=== PATIENT | female | born 1995 | race Caucasian/White ===

== ENCOUNTER 2021-04-20 23:35 | Emergency (ER) | payer MEDICAID, SELFPAY ==
[2021-04-20 23:40] VITALS: BP 115/62; PULSE 69; RESP 18; TEMP 36.3; O2SAT 100
[2021-04-21 00:49] LABS: Add Urine Microscopic? YES; Appearance Urine Clear (Clear); Bilirubin Urine Negative (Negative); Blood Urine 1+ (Negative); Color Urine Yellow (Yellow); Glucose Urine UA Negative (Negative); Ketones Urine Negative (Negative); Leukocyte Esterase Ur Negative LEU/UL (Negative); Nitrate Urine Negative (Negative); Protein Urine Negative (Negative); RBC Urine 0-2 /hpf (0-2); Squamous Epithelial Cell Urine Rare /hpf (Few); Urobilinogen Urine Negative mg/dL (<2.0); WBC Urine 0-3 /hpf
[2021-04-21 02:00] VITALS: BP 126/56; PULSE 67; RESP 18; TEMP 36.8; O2SAT 100
--- NOTE | 2021-04-21 03:45 | ED.BACK ---
HPI - Back Pain/Injury General Chief Complaint: Back Pain/Injury Stated Complaint: severe back pain Time Seen by Provider: 04/21/21 02:33 Source: patient and RN notes reviewed Mode of arrival: ambulatory Limitations: no limitations History of Present Illness HPI Narrative: This is a 26 year old female with scolosis and chronic back pain who presents for evaluation low back pain. She states she has chronic low back pain but she has been having worsening pain 3 days ago. Her pain has been constant. She states her pain does not seem worse with anything or better with anything. She denies nausea, vomiting, fever, leg weakness, numbness, tingling or abdominal pain. She took ibuprofen 6 hours ago for her pain. 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 She denies any recent heavy moving although she just moved to town 3 weeks ago. Related Data Allergies Allergy/AdvReac Type Severity Reaction Status Date / Time No Known Allergies Allergy Verified 04/21/21 02:10 Review of Systems Review of Systems: All systems reviewed & are unremarkable except as noted in HPI and below PMFSH Past Medical History Medical History (Updated 04/21/21 @ 05:22 by Lizette Ontiveros MD) Scoliosis Surgical History Surgical History (Updated 04/21/21 @ 03:48 by Lizette Ontiveros MD) No pertinent past surgical history Social History Social History (Updated 04/21/21 @ 03:48 by Lizette Ontiveros MD) Smoking status: Never smoker Exam Const: General: no acute distress and alert Orientation/consciousness: patient oriented x3 Eyes: EOM: EOMs intact bilaterally Chest: Chest palpation & inspection: normal inspection of the chest Resp: Effort & Inspection: normal respiratory effort and no retractions Auscultation: clear to auscultation bilaterally Cardio: Rate: regular rate Rhythm: regular rhythm GI: GI Palp: Yes Soft to palpation, No Tenderness to palpation present (GI) and No Guarding due to palpation present (GI) Auscultation: normal bowel sounds Back/Spine/Pelvis: Back: no CVA tenderness Other: patient had muscular tenderness to bilateral lower back. She started crying. Skin: General skin exam: normal color Rashes: no rashes Neuro: General: patient oriented x3, moves all extremities and CN's II-XI intact bilaterally Gait exam (Neuro): Normal gait present Course Reevaluation(s) Reevaluation #1: PAtient states she feels much better. Labs were unremarkable. She has no signs imaging needed at this time. Date: 04/21/21 Time: 05:21 Vital Signs Vital signs: Vital Signs Temperature 97.3 F L 04/20/21 23:40 Pulse Rate 69 04/20/21 23:40 Respiratory Rate 18 04/20/21 23:40 Blood Pressure 115/62 04/20/21 23:40 Pulse Oximetry 100 04/20/21 23:40 Temperature 98.2 F 04/21/21 02:00 Pulse Rate 60 04/21/21 05:57 Respiratory Rate 16 04/21/21 05:57 Blood Pressure 112/61 04/21/21 05:57 Pulse Oximetry 100 04/21/21 05:57 MDM - Back Pain/Injury Lab Data Attestation: I reviewed the patient's lab results. Result diagrams: 04/21/21 04:34 04/21/21 04:34 Labs: Lab Results 04/21/21 04/21/21 04/21/21 Range/Units 00:22 04:34 04:34 WBC 9.3 (4.5-10.0) K/mm3 RBC 3.82 L (4.2-5.4) M/mm3 Hgb 12.3 (12.0-15.0) g/dL Hct 37.7 (37.0-47.0) % MCV 98.7 (80-100) fl MCH 32.2 (26-34) pg MCHC 32.6 (32-36) g/dl RDW 12.3 (11.5-14.5) % Plt Count 297 (150-375) k/mm3 MPV 10.3 (7.4-10.4) fl Immature Gran % (Auto) 0.2 (0-0.5) % Neut % (Auto) 65.2 (45.5-73.1) % Lymph % (Auto) 19.4 (18.3-44.2) % [place] % (Auto) 9.0 H (2.6-8.5) % Eos % (Auto) 5.8 H (0-4.4) % Baso % (Auto) 0.4 (0.2-1.2) % Lymph # (Auto) 1.81 (0.9-3.2) K/mm3 [place] # (Auto) 0.8 H (0.1-0.6) K/mm3 Eos # (Auto) 0.5 H (0-0.3) K/mm3 Baso # (Auto) 0.0 (0.0-0.1) K/mm3 Abs Immat Gran (auto) 0.02 (0.00-0.031) K/mm3 Absolute Neuts (
[2021-04-21] MEDS: diazePAM (*CRX) 5 MG TABLET PO (04:04)
[2021-04-21] MEDS: KETOROLAC (*BKC) 60 MG/2 ML VIAL IM (04:04)
[2021-04-21 04:38] VITALS: BP 108/53; PULSE 69; RESP 18; O2SAT 100
[2021-04-21 04:46] LABS: Basophils Percent Auto 0.4 % (0.2-1.2); Eosinophils Absolute Auto 0.5 K/mm3 (0-0.3); Eosinophils Percent Auto 5.8 % (0-4.4); Hematocrit 37.7 % (37.0-47.0); Hemoglobin 12.3 g/dL (12.0-15.0); Immature Granulocyte Absolute 0.02 K/mm3 (0.00-0.031); Immature Granulocyte Percent A 0.2 % (0-0.5); Lymphocytes Absolute Auto 1.81 K/mm3 (0.9-3.2); Lymphocytes Percent Auto 19.4 % (18.3-44.2); Mean Corpuscular HGB Conc 32.6 g/dl (32-36); Mean Corpuscular Hemoglobin 32.2 pg (26-34); Mean Corpuscular Volume 98.7 fl (80-100); Mean Platelet Volume 10.3 fl (7.4-10.4); Monocytes Absolute Auto 0.8 K/mm3 (0.1-0.6); Neutrophils Absolute Auto 6.1 K/mm3 (1.3-6.7); Neutrophils Percent Auto 65.2 % (45.5-73.1); Platelet Count Result 297 k/mm3 (150-375); Red Blood Count 3.82 M/mm3 (4.2-5.4); Red Cell Distribution Width 12.3 % (11.5-14.5); White Blood Count 9.3 K/mm3 (4.5-10.0)
[2021-04-21 04:54] LABS: Creatine Kinase 61 U/L (30-135)
[2021-04-21 04:58] LABS: Alanine Aminotransferase 17 U/L (4-35); Albumin Level 3.8 g/dL (3.5-5.1); Alkaline Phosphatase 54 U/L (38-126); Anion Gap 10 mmol/L (8-16); Aspartate Amino Transferase 25 U/L (14-36); Bilirubin,Total 0.4 mg/dL (0.2-1.3); Blood Urea Nitrogen 14 mg/dL (7-17); CRP < 0.5 mg/dL (<1.0); Calcium 8.7 mg/dL (8.4-10.2); Carbon Dioxide 25 mmol/L (22-30); Chloride 106 mmol/L (98-107); Estimated CRCL calculation 128 ml/min; Estimated Glomerular Filt Rate > 60; Glucose 110 mg/dL (65-110); Lipase 119 U/L (23-300); Potassium 4.3 mmol/L (3.4-5.0); Sodium 141 mmol/L (137-145)
[2021-04-21 05:57] VITALS: BP 112/61; PULSE 60; RESP 16; O2SAT 100
== END 2021-04-21 06:01 | disposition home or self-care (01) ==
PROVIDERS: Emergency Provider General Practice
DX: M54.5 Low back pain (principal); M41.9 Scoliosis, unspecified
CPT/HCPCS: 36415; 80053; 81001; 81025; 82550; 83690; 85025; 86140; 96372; 99283; A9270; J1885

== ENCOUNTER 2022-07-18 10:52 | Emergency (ER) | payer OTHER, SELFPAY ==
--- NOTE | ~2022-07-18 | XR_ITS ---
EXAMINATION: XR lumbar spine 2-3V DATE: 07/18/2022 12:10 INDICATION: Nontraumatic low back pain TECHNIQUE: Anteroposterior and lateral views of the lumbar spine, and cone-down lateral view of the l umbosacral junction were obtained. COMPARISON: None. FINDINGS: Alignment is normal. Vertebral body and disc heights are normal. No evident osteoarthritis at the lum bar facet, bilateral sacroiliac or hip joints. Small bone island at the left supra-acetabular region. Normal bowel gas pattern. Small phlebolith in the left hemipelvis.. IMPRESSION: 1. Unremarkable lumbar spine radiographs. Reviewed, dictated and finalized at location A. 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
--- NOTE | ~2022-07-18 | CT_ITS ---
EXAMINATION: CT abdomen pelvis wo con DATE: 07/18/2022 13:15 INDICATION: Right flank pain. Hematuria. TECHNIQUE: Computed tomography (CT) of the abdomen and pelvis was performed without intravenous contr ast. Automated exposure control and iterative reconstruction technique were employed. The dose-length product was 231.45 mGy-cm. COMPARISON: None FINDINGS: Lung bases are clear. Heart size is normal. No pericardial or pleural effusion. Liver, gallbladder, s pleen, pancreas and bilateral adrenal glands are normal. Kidneys and ureters are normal with no uroli thiasis, hydroureteronephrosis or perinephric/ureteral stranding. Small phlebolith in the deep pelvis posterior to the left ureter. Bladder, anteverted uterus and bilateral adnexa are unremarkable. Hernando ls including the appendix are normal. No free intraperitoneal gas or fluid. No pathologically enlarge d abdominal or pelvic lymphadenopathy. Mild lumbar dextrocurvature. There are few small bone islands in the pelvis and proximal left femur. IMPRESSION: 1. No urolithiasis or acute intra-abdominal/pelvic process. Reviewed, dictated and finalized at location A. 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
[2022-07-18 10:59] VITALS: BP 125/66; PULSE 89; RESP 14; TEMP 36.6; O2SAT 97
--- NOTE | 2022-07-18 11:47 | ED.BACK ---
HPI - Back Pain/Injury General Chief Complaint: Back Pain/Injury Stated Complaint: back pain Time Seen by Provider: 07/18/22 11:32 History of Present Illness HPI Narrative: Patient is a 27-year-old female with history of scoliosis here for evaluation of acute on chronic low back pain. Patient states that over the past several days her back has been hurting her more than usual, states that it is an aching type of pain that is present in her left low back and moves over to the right. Denies injury to her back but does state that her pain will flareup with cold weather. She has attempted ibuprofen without relief of her symptoms. No fevers, chills, nausea, vomiting, incontinence or retention of bowel or bladder, saddle anesthesia, numbness, weakness or tingling in her legs. Related Data Allergies Allergy/AdvReac Type Severity Reaction Status Date / Time No Known Allergies Allergy Verified 07/18/22 11:07 Review of Systems Review of Systems: Gen.: Denies fevers or chills Eyes: Denies eye pain or visual change ENT: Denies congestion Respiratory: Denies shortness of breath or cough CV: Denies chest pain or palpitations GI: Denies abdominal pain nausea, emesis or diarrhea denies burning, urgency, frequency or hematuria Musculoskeletal: Reports back pain. Neuro: Denies numbness, tingling, weakness or focal weakness Skin: Denies rash Except as documented, all other systems reviewed and negative PMFSH Past Medical History Medical History Scoliosis Surgical History Surgical History No pertinent past surgical history Social History Social History (Updated 04/21/21 @ 03:48 by Lizette Ontiveros MD) Smoking status: Never smoker Exam Narrative: APPEARANCE: Well appearing, no pain in distress, well-nourished. Head: Normocephalic and atraumatic. EYES: PERRLA/EOMI, conjunctivae clear NOSE: No nasal drainage EARS: External ear normal in appearance THROAT: Oropharynx is clear. Mucous membranes are moist. NECK: Supple. No adenopathy, no masses. RESPIRATORY: Airway patent, respirations nonlabored. Clear to auscultation bilaterally, no rales, rhonchi, wheezing. CARDIOVASCULAR: Regular rate and rhythm without murmurs, rubs, or gallops. ABDOMINAL: Normoactive bowel sounds. Soft, nontender, nondistended. No rebound tenderness or guarding. MUSCULOSKELETAL: No bony tenderness to palpation along C, T or L-spine. Paraspinal muscle tenderness in the right lumbar region. Extremities are warm and well-perfused. Moves all extremities well. No edema. NEURO: Normal speech. No focal neurologic deficits. SKIN: Skin is warm and dry. No rashes. PSYCHIATRIC: Normal affect/mood.. Course Vital Signs Vital signs: Vital Signs Temperature 97.9 F 07/18/22 10:59 Pulse Rate 89 07/18/22 10:59 Respiratory Rate 14 07/18/22 10:59 Blood Pressure 125/66 07/18/22 10:59 Pulse Oximetry 97 07/18/22 10:59 Temperature 97.9 F 07/18/22 10:59 Pulse Rate 69 07/18/22 14:15 Respiratory Rate 18 07/18/22 14:15 Blood Pressure 123/68 07/18/22 14:15 Pulse Oximetry 99 07/18/22 14:15 MDM - Back Pain/Injury MDM Narrative Medical decision making narrative: Patient is a 27-year-old female here for evaluation of acute on chronic low back pain for the past several days. Patient is nontoxic-appearing and has no midline tenderness on exam. Her vital signs are normal. She does have evidence of a UTI on urinalysis with nitrite positive, leuks, white blood cells and red blood cells. Basic labs are unremarkable aside from a white count of 12.4. CT scan without evidence of kidney stones or pyelonephritis. She will be discharged home with antibiotics to cover for UTI to follow-up with her primary care doctor. Lab Data 07/18/22 13:20 07/18/22 13:20 Labs: Lab Results 07/18/2207/18
[2022-07-18] MEDS: ACETAMINOPHEN 325 MG TABLET 650 MG PO (11:52)
[2022-07-18] MEDS: LIDOCAINE 5% PATCH 1 PATCH TRANSDERM (11:52)
[2022-07-18 12:11] LABS: Add Urine Microscopic? YES; Appearance Urine Clear (Clear); Bilirubin Urine Negative (Negative); Blood Urine 2+ (Negative); Color Urine Light Yellow (Yellow); Glucose Urine UA Negative (Negative); Ketones Urine Negative (Negative); Leukocyte Esterase Ur 1+ LEU/UL (Negative); Nitrate Urine Positive (Negative); Protein Urine Trace mg/dL (Negative); Specific Grav Ur 1.025 (1.001-1.035); Urobilinogen Urine 0.2 mg/dL (<2.0); pH Urine 5.5 (5.0-9.0)
[2022-07-18 12:17] LABS: Bacteria Urine Trace /hpf; Mucus Urine Rare /lpf; RBC Urine 51-75 /hpf (0-2); Squamous Epithelial Cell Urine Few /hpf (Few); WBC Urine 51-75 /hpf
[2022-07-18 13:26] LABS: Basophils Percent Auto 0.3 % (0.2-1.2); Eosinophils Absolute Auto 0.1 K/mm3 (0-0.3); Hematocrit 36.6 % (37.0-47.0); Hemoglobin 11.6 g/dL (12.0-15.0); Immature Granulocyte Absolute 0.07 K/mm3 (0.00-0.031); Immature Granulocyte Percent A 0.6 % (0-0.5); Lymphocytes Absolute Auto 1.05 K/mm3 (0.9-3.2); Lymphocytes Percent Auto 8.5 % (18.3-44.2); Mean Corpuscular HGB Conc 31.7 g/dl (32-36); Mean Corpuscular Hemoglobin 30.1 pg (26-34); Mean Corpuscular Volume 95.1 fl (80-100); Mean Platelet Volume 9.6 fl (7.4-10.4); Monocytes Percent Auto 8.4 % (2.6-8.5); Neutrophils Absolute Auto 10.1 K/mm3 (1.3-6.7); Neutrophils Percent Auto 81.2 % (45.5-73.1); Platelet Count Result 279 k/mm3 (150-375); Red Blood Count 3.85 M/mm3 (4.2-5.4); Red Cell Distribution Width 14.6 % (11.5-14.5); White Blood Count 12.4 K/mm3 (4.5-10.0)
[2022-07-18 13:37] LABS: Alanine Aminotransferase 17 U/L (6-35); Albumin Level 3.6 g/dL (3.5-5.1); Alkaline Phosphatase 85 U/L (38-126); Anion Gap 4 mmol/L (8-16); Aspartate Amino Transferase 26 U/L (14-36); Bilirubin,Total 0.8 mg/dL (0.2-1.3); Blood Urea Nitrogen 13 mg/dL (7-17); Calcium 8.3 mg/dL (8.4-10.2); Carbon Dioxide 25 mmol/L (22-30); Chloride 104 mmol/L (98-107); Estimated CRCL calculation 123 ml/min; Estimated Glomerular Filt Rate > 60; Glucose 97 mg/dL (65-110); Potassium 3.8 mmol/L (3.4-5.0); Sodium 133 mmol/L (137-145)
[2022-07-18 14:15] VITALS: BP 123/68; PULSE 69; RESP 18; O2SAT 99
== END 2022-07-18 14:17 | disposition home or self-care (01) ==
PROVIDERS: Emergency Provider Physician Assistant
DX: N39.0 Urinary tract infection, site not specified (principal)
CPT/HCPCS: 36415; 72100; 74176; 80053; 81001; 81025; 85025; 87077; 87086; 87186; 96372; 99284; A9270; J1100

== ENCOUNTER 2022-11-28 21:38 | Emergency (ER) | payer OTHER, SELFPAY ==
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
--- NOTE | ~2022-11-28 | XR_ITS ---
AP view of the pelvis and AP and lateral views of the bilateral hips Clinical history: Pain Findings: No acute fracture or dislocation is seen. Osseous alignment is anatomic. Bilateral hip and SI joint spaces are preserved. Soft tissues are unremarkable. Impression: No significant abnormality is seen. Reviewed, dictated and finalized at location . Impression: No significant abnormality is seen.
--- NOTE | ~2022-11-28 | XR_ITS ---
Left Knee Technique: AP, lateral, and oblique views were obtained. Clinical History: Pain Findings: No fracture or dislocation is seen. Osseous alignment is anatomic. Joint spaces are preserv ed without degenerative or erosive change. Soft tissues are unremarkable. No joint effusion is seen. Impression: Unremarkable left knee radiographs. Reviewed, dictated and finalized at location . Impression: Unremarkable left knee radiographs.
--- NOTE | ~2022-11-28 | XR_ITS ---
Right Knee Technique: AP, lateral, and oblique views were obtained. Clinical History: Pain Findings: No fracture or dislocation is seen. Osseous alignment is anatomic. Joint spaces are preserv ed without degenerative or erosive change. Soft tissues are unremarkable. No joint effusion is seen. Impression: Unremarkable right knee radiographs. Reviewed, dictated and finalized at location . Impression: Unremarkable right knee radiographs.
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
[2022-11-28 21:53] VITALS: BP 111/62; PULSE 74; RESP 20; TEMP 37; O2SAT 100
[2022-11-28 23:46] VITALS: BP 110/76; PULSE 71; RESP 15; O2SAT 100
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
[2022-11-29 01:04] LABS: Basophils Percent Auto 0.2 % (0.2-1.2); Eosinophils Absolute Auto 0.2 K/mm3 (0-0.3); Eosinophils Percent Auto 2.2 % (0-4.4); Hematocrit 35.5 % (37.0-47.0); Hemoglobin 11.4 g/dL (12.0-15.0); Immature Granulocyte Absolute 0.02 K/mm3 (0.00-0.031); Immature Granulocyte Percent A 0.2 % (0-0.5); Lymphocytes Absolute Auto 2.23 K/mm3 (0.9-3.2); Lymphocytes Percent Auto 25.5 % (18.3-44.2); Mean Corpuscular HGB Conc 32.1 g/dl (32-36); Mean Corpuscular Hemoglobin 30.9 pg (26-34); Mean Corpuscular Volume 96.2 fl (80-100); Mean Platelet Volume 10.3 fl (7.4-10.4); Monocytes Percent Auto 10.9 % (2.6-8.5); Neutrophils Absolute Auto 5.3 K/mm3 (1.3-6.7); Platelet Count Result 300 k/mm3 (150-375); Red Blood Count 3.69 M/mm3 (4.2-5.4); Red Cell Distribution Width 13.9 % (11.5-14.5); White Blood Count 8.8 K/mm3 (4.5-10.0)
[2022-11-29 01:07] LABS: Appearance Urine Cloudy (Clear); Bacteria Urine 4+ /hpf; Bilirubin Urine Negative (Negative); Blood Urine 2+ (Negative); Color Urine Dark Yellow (Yellow); Glucose Urine UA Negative (Negative); Ketones Urine 1+ mg/dL (Negative); Leukocyte Esterase Ur Trace LEU/UL (Negative); Need Manual Microscopic Reviewed; Nitrate Urine Negative (Negative); Non Pathogenic Casts 0-2; Protein Urine Trace mg/dL (Negative); Squamous Epithelial Cell Urine Moderate /hpf (Few); pH Urine 5.5 (5.0-9.0)
[2022-11-29 01:08] LABS: Specific Grav Ur 1.041 (1.001-1.035)
[2022-11-29 01:09] LABS: Add Urine Microscopic? YES
[2022-11-29 01:15] LABS: Alanine Aminotransferase 27 U/L (6-35); Albumin Level 3.5 g/dL (3.5-5.1); Alkaline Phosphatase 73 U/L (38-126); Anion Gap 5 mmol/L (8-16); Aspartate Amino Transferase 56 U/L (14-36); Bilirubin,Total 0.9 mg/dL (0.2-1.3); Blood Urea Nitrogen 12 mg/dL (7-17); Calcium 8.3 mg/dL (8.4-10.2); Carbon Dioxide 26 mmol/L (22-30); Chloride 105 mmol/L (98-107); Estimated CRCL calculation 147 ml/min; Estimated Glomerular Filt Rate > 60; Glucose 93 mg/dL (65-110); Potassium 3.8 mmol/L (3.4-5.0); Sodium 136 mmol/L (137-145)
[2022-11-29] MEDS: KETOROLAC 30 MG/ML VIAL (*BKC) IV PUSH (02:39)
[2022-11-29 02:50] VITALS: BP 102/64; PULSE 73; RESP 16; O2SAT 99
== END 2022-11-29 02:55 | disposition home or self-care (01) ==
PROVIDERS: Emergency Provider Emergency Medicine
DX: S29.012A Strain of muscle and tendon of back wall of thorax, initial encounter (principal); S50.12XA Contusion of left forearm, initial encounter; S70.11XA Contusion of right thigh, initial encounter; S70.12XA Contusion of left thigh, initial encounter; N30.00 Acute cystitis without hematuria; V89.2XXA Person injured in unspecified motor-vehicle accident, traffic, initial encounter
CPT/HCPCS: 36415; 71260; 73090; 73521; 73562; 74177; 80053; 81001; 81025; 85025; 87086; 87088; 96374; 99284; J1885; Q9967